=== PATIENT | female | born 1990 | race Hispanic/Latino ===

== ENCOUNTER 2021-05-17 07:15 | Day surgery (SDC) | payer BC ==
[2021-05-17] MEDS ORDERED: Lidocaine 1% w/Epinephrine 1:100K 20 ML VIAL ONE (07:17)
[2021-05-17] MEDS ORDERED: Bupivacaine 0.25% HCL 30 ML VIAL ONE (07:17)
[2021-05-17] MEDS ORDERED: Piperacillin/Tazobactam 3.375 GM VIAL ONE (07:22)
[2021-05-17] MEDS ORDERED: Sodium Chloride 0.9% 100 ML ONE (07:23)
[2021-05-17] MEDS ORDERED: Dexmedetomidine 200 MCG/2 ML VIAL ONE (07:26)
[2021-05-17] MEDS ORDERED: Fentanyl 100 MCG/2 ML VIAL ONE (07:26)
[2021-05-17] MEDS ORDERED: Ketorolac Tromethamine 30 MG/ML VIAL ONE (08:09)
[2021-05-17] MEDS ORDERED: Glycopyrrolate 0.2 MG/ML 5 ML SYRINGE ONE (08:17)
[2021-05-17] MEDS ORDERED: PROPOFOL 200 MG/20 ML VIAL ONE (08:17)
[2021-05-17] MEDS ORDERED: Lidocaine 1% PF 5 ML VIAL ONE (08:17)
[2021-05-17] MEDS ORDERED: PHENYLEPHRINE-NS 100 MCG/ML 10 ML SYRINGE ONE (08:17)
[2021-05-17] MEDS ORDERED: Ondansetron PF 4 MG/2 ML Vial ONE (08:17)
[2021-05-17] MEDS ORDERED: Rocuronium Bromide 10 MG/ML (10ML VIAL) ONE (08:17)
[2021-05-17] MEDS ORDERED: Dexamethasone 20 MG/5 ML VIAL ONE (08:17)
== END 2021-05-17 13:38 | disposition home or self-care (01) ==
LOC: SDC/OP 07:15
PROVIDERS: ATTEND Specialist
PROC: 0DTJ4ZZ Resection of Appendix, Percutaneous Endoscopic Approach (ICD-10-PCS; principal; 2021-05-17)
DX: K35.30 Acute appendicitis with localized peritonitis, without perforation or gangrene (principal)
CPT/HCPCS: 88304; J1100; J1885; J2405; J2543; J2704; J3010; J3490; S0020